=== PATIENT | female | born 1960 | race Hispanic/Latino ===

== ENCOUNTER 2017-08-18 21:12 | Emergency (ER) | payer OTHER ==
[2017-08-19] MEDS ORDERED: ACETAMINOPHEN EXTRA STRENGTH 500 MG TABLET ONE (00:45)
== END 2017-08-18 22:17 | disposition home or self-care (01) ==
LOC: EDH 21:12
DX: S30.1XXA Contusion of abdominal wall, initial encounter (principal); Z98.890 Other specified postprocedural states; V49.09XA Driver injured in collision with other motor vehicles in nontraffic accident, initial encounter; Y93.89 Activity, other specified; Y92.89 Other specified places as the place of occurrence of the external cause; Y99.8 Other external cause status
CPT/HCPCS: 99282

== ENCOUNTER 2018-04-17 18:18 | Emergency (ER) | payer OTHER | END 2018-04-17 20:33 | disposition home or self-care (01) | LOC: EDH 18:18 | DX: S13.9XXA Sprain of joints and ligaments of unspecified parts of neck, initial encounter (principal); S40.011A Contusion of right shoulder, initial encounter; S79.912A Unspecified injury of left hip, initial encounter; I10 Essential (primary) hypertension; V49.09XA Driver injured in collision with other motor vehicles in nontraffic accident, initial encounter; Y93.89 Activity, other specified; Y92.89 Other specified places as the place of occurrence of the external cause; Y99.8 Other external cause status | CPT/HCPCS: 72125; 72170; 73030 ==

== ENCOUNTER 2019-10-02 13:18 | Emergency (ER) | payer OTHER | END 2019-10-02 14:16 | disposition home or self-care (01) | LOC: EDH 13:18 | DX: M54.6 Pain in thoracic spine (principal); Z72.0 Tobacco use; V49.59XA Passenger injured in collision with other motor vehicles in traffic accident, initial encounter; Y93.89 Activity, other specified; Y92.89 Other specified places as the place of occurrence of the external cause; Y99.8 Other external cause status ==

== ENCOUNTER 2022-10-23 14:47 | Emergency (ER) | payer BC ==
[~2022-10-23] VITALS: Ht 152.4 cm; Wt 71.2 kg
[2022-10-23] MEDS ORDERED: 0.9%NACL 1000ML 1,000 ML IV ONE (15:00)
[2022-10-23] MEDS ORDERED: DiphenhydrAMINE HCL 50 MG/ML VIAL IV ONE (15:00)
[2022-10-23] MEDS ORDERED: EPINEPHRINE PF 1MG (1:1,000) 1 MG/ML AMP SQ SCH (15:00)
[2022-10-23] MEDS ORDERED: SOLU-MEDROL 125MG VIAL IVP ONE (15:00)
[2022-10-23 15:22] LABS: RED BLOOD CELL COUNT(AUTO) 4.75 MIL/uL (4.00-5.50); WHITE BLOOD COUNT (AUTO) 6.9 K/uL (4.8-10.8)
[2022-10-23 15:23] LABS: BASOPHILS % (AUTO) 0.3 % (0.0-5.0); EOSINOPHILS % (AUTO) 0.6 % (0.0-8.0); HEMATOCRIT 43.4 % (36-48); LYMPHOCYTES % (AUTO) 43.9 % (21.0-51.0); MEAN CORPUSCULAR HEMOGLOBIN 30.1 pg (27.0-33.0); MEAN CORPUSCULAR HGB CONC 32.9 g/dL (32.0-36.0); MEAN CORPUSCULAR VOLUME 91.4 fL (79-99); MONOCYTES % (AUTO) 6.4 % (3.0-13.0); NEUTROPHILS % (AUTO) 48.7 % (40.0-77.0); PLATELET COUNT (AUTO) 251 K/uL (130-400); RED CELL DISTRIBUTION WIDTH 13.5 % (11.0-15.5)
[2022-10-23 15:32] LABS: CREATININE 0.7 mg/dL (0.5-1.5); POTASSIUM 4.1 mmol/L (3.5-5.1)
[2022-10-23 15:39] LABS: ALBUMIN 4.2 g/dL (3.5-5.0); TOTAL PROTEIN, SERUM 8.4 g/dL (6.0-8.3)
[2022-10-23] MEDS ORDERED: DIPHENHYDRAMINE HCL 25 MG CAPSULE ONE (17:05)
[2022-10-23] MEDS ORDERED: FAMOTIDINE 20MG VIAL IV ONE ×3 (17:05→18:30)
[2022-10-23] MEDS ORDERED: DIPHENHYDRAMINE HCL 25 MG CAPSULE PO ONE (17:30)
[2022-10-23 17:33] LABS: APPEARANCE,URINE CLEAR (CLEAR); BILIRUBIN,URINE NEGATIVE (NEGATIVE); COLOR,URINE LIGHT-YELLOW (YELLOW); GLUCOSE, URINE (UA) NEGATIVE (NEGATIVE); KETONES,URINE NEGATIVE (NEGATIVE); LEUKOCYTE ESTERASE ,URINE 75 Leu/uL (NEGATIVE); NITRATE,URINE NEGATIVE (NEGATIVE); OCCULT BLOOD,URINE NEGATIVE (NEGATIVE); PROTEIN,URINE 20 mg/dL (NEGATIVE); UROBILINOGEN,URINE 0.2 mg/dL (0.2-1.0)
[2022-10-23 18:00] LABS: BACTERIA,URINE MOD /HPF (None Seen); MUCUS,URINE FEW LPF (None Seen); SQUAMOUS EPITHELIAL CELL,UR FEW /HPF (0-2)
[2022-10-23] MEDS ORDERED: CEFTRIAXONE 1G VIAL IVPB ONE (18:30)
[2022-10-23] MEDS ORDERED: SOLU-MEDROL 40MG VIAL IVP ONE (18:30)
[2022-10-23] MEDS ORDERED: CEFTRIAXONE 1G VIAL ONE (18:36)
[2022-10-23] MEDS ORDERED: PHEN-847 PO (18:39)
[2022-10-23] MEDS ORDERED: EPIN0.3P3 IJ (18:39)
[2022-10-23] MEDS ORDERED: CEPH500C2 PO (18:39)
[2022-10-23] MEDS ORDERED: FAMO-136 PO (18:39)
[2022-10-23] MEDS ORDERED: PRED20TA3 PO (18:39)
[2022-10-23] MEDS ORDERED: PHENAZOPYRIDINE HCL 200 MG TABLET ONE (18:42)
[2022-10-23 18:47] VITALS: BP 122/74
[2022-10-23] MEDS ORDERED: PHENAZOPYRIDINE HCL 200 MG TABLET PO ONE (19:00)
== END 2022-10-23 19:12 | disposition home or self-care (01) ==
LOC: EDH 14:47
DX: T78.40XA Allergy, unspecified, initial encounter (principal); N39.0 Urinary tract infection, site not specified; I10 Essential (primary) hypertension; Z79.52 Long term (current) use of systemic steroids; X58.XXXA Exposure to other specified factors, initial encounter
CPT/HCPCS: 99284; 96374; 96375; 96361; 84484; 80053; 85025; 87088; 81001; 36415; 93005; Q0163; J3490; J7030; J0696; J2920